=== PATIENT | male | born 1960 | race Caucasian/White ===

== ENCOUNTER 2018-04-17 11:35 | Day surgery (SDC) | payer MEDICAID ==
[2018-04-16 09:55] LABS: CALC OSMOLALITY 277 mosm/kg (275-300); CALCIUM 8.7 mg/dL (8.5-10.1); CARBON DIOXIDE 21.3 mmol/L (21.0-32.0); CHLORIDE - SERUM 106 mmol/L (98-107); POTASSIUM - SERUM 4.6 mmol/L (3.5-5.1); SODIUM 138 mmol/L (136-145); UREA NITROGEN 17 mg/dL (7-18); eGFR NON AFRICAN AMERICAN 82 mL/min (90-120)
[2018-04-16 09:57] LABS: GLUCOSE 102 mg/dL (74-106); HEMATOCRIT 41.4 % (42.0-54.0); HEMOGLOBIN 14.7 g/dL (13.5-17.5); MCH 30.8 pg (26.0-34.0); MCHC 35.5 g/dL (31.0-37.0); MCV 86.8 fL (80.0-100.0); MEAN PLATELET VOLUME 10.2 fL (7.4-10.4); PLATELET COUNT 95 10x3/uL (130-400); RBC 4.77 10x6/uL (4.20-6.10); RDW 13.3 % (11.5-14.5); WBC 7.3 10x3/uL (4.8-10.8)
[2018-04-16 11:13] LABS: PLATELET ESTIMATE DECREASED
[~2018-04-17] VITALS: Ht 180.3 cm; Wt 127.0 kg
--- NOTE | ~2018-04-17 | OP ---
PATIENT NAME: PRESLEY ARIAS MEDICAL RECORD: [id number] :60 LOCATION:[facility] ADMISSION DATE: SURGEON: MARII LAMBERT DO DATE OF OPERATION: 04/17/2018 PROCEDURE PERFORMED: Right endoscopic carpal tunnel release. PREOPERATIVE DIAGNOSIS: Right carpal tunnel syndrome. POSTOPERATIVE DIAGNOSIS: Right carpal tunnel syndrome. INDICATIONS: Mr. Arias is a 57-year-old male who presented to my office with a nerve conduction study, which revealed bilateral severe carpal tunnel syndrome, right worse than left. He informed me that his right hand had been numb and going to sleep on him as well as his left would wake him up at night and he could not drive or use it hardly without it going numb on him. After seeing the results of his nerve conduction study, I informed him that due to the severity of the carpal tunnel, we may not be able to get this better as far as the numbness, but the pain we can certainly help. After he was informed of the risks and benefits including damage to nerve, need for further surgery, infection, bleeding, he signed the consent. SURGEON: Marii Lambert DO DESCRIPTION OF PROCEDURE: The patient was taken to the operative suite, laid in supine position, given general anesthetic. The right upper extremity was prepped and draped in sterile fashion with tourniquet above the elbow below the drapes. Once he was prepped and draped, the patient was given 2 grams of Ancef preoperatively. The right upper extremity was then exsanguinated with an Esmarch and the tourniquet was inflated to 250 mmHg. A timeout had been performed at this point and incision was made just around the wrist crease with a 15-blade scalpel centered over the palmaris longus. Careful dissection was made down then, blunt dissection was made with Ragnell down the carpal tunnel itself and the carpal tunnel was entered with a measuring device and then the dilators and then the sheath was entered into the carpal tunnel. Once the transverse carpal ligament was viewed well with a sheath and the camera, it was cleaned with a rasp and the probe, and then the blade was entered in through the sheath and the transverse carpal ligament was incised and transected. Prior to entering the sheath and the dilators into the carpal tunnel, the proximal forearm fascia was released over the median nerve. Then, the transverse carpal tunnel was released with the blade through the sheath, and the sheath, the blade, and the camera were removed, and the most proximal portion of the transverse carpal ligament was left intact. This was then transected with a pair of scissors under direct loupe visualization. The larger end of the Ragnell was used in the carpal tunnel to view to ensure the transcarpal ligament was completely incised and then released. The injection of 10 mL of 0.25% Marcaine with epinephrine were then injected around the site and tourniquet was let down to 8 minutes. The incision was then closed with 4-0 Monocryl in inverted interrupted fashion. Steri-Strips, Adaptic, 4 x 4's, Kerlix, and Coban were lightly placed on the wound. The patient was awakened and taken to recovery in stable condition. BLOOD LOSS: Minimal. COMPLICATIONS: None. OPERATIVE REPORT [id number] PRESLEY ARIAS TRANSINT:[id number] Voice Confirmation ID: [id number] DOCUMENT ID: [id number] MARII LAMBERT DO at 0911 CC: [id number] DICTATION DATE: 04/17/18 1549 EQUINE VET: 04/17/18 1635 [facility] 04/17/18 [facility] [address] [place] [address]
[2018-04-17] MEDS ORDERED: GLIMEPIRIDE4 MG PO (13:17)
[2018-04-17] MEDS ORDERED: LITHIUM CARBON300 MG PO (13:18)
[2018-04-17] MEDS ORDERED: NEURONTIN 300300 MG PO (13:18)
[2018-04-17] MEDS ORDERED: COREG 3.1253.125 MG (13:19)
[2018-04-17] MEDS ORDERED: TRAZODONE HCL100 MG PO (13:20)
[2018-04-17] MEDS ORDERED: BUSPAR5 MG PO (13:20)
[2018-04-17] MEDS ORDERED: FLOMAX0.4 MG PO (13:22)
[2018-04-17] MEDS ORDERED: JANUMET XR 1001 EACH (13:22)
[2018-04-17 13:29] VITALS: BP 130/81; Ht 180.3 cm; Wt 127.0 kg
[2018-04-17] MEDS ORDERED: PERCOCET 7.5/321 TAB PO (15:05)
[2018-04-17] MEDS ORDERED: DURICEF500 MG PO (15:05)
== END 2018-04-17 17:30 | disposition home or self-care (01) ==
LOC: D.OPS 11:35 → D.PAN 13:30 → D.OPS 14:00
PROVIDERS: Anesthesiology
DX: G56.01 Carpal tunnel syndrome, right upper limb (principal); Z01.812 Encounter for preprocedural laboratory examination

== ENCOUNTER 2018-05-08 10:40 | Day surgery (SDC) | payer MEDICAID ==
[~2018-05-08] VITALS: Ht 180.3 cm; Wt 127.0 kg
--- NOTE | ~2018-05-08 | OP ---
PATIENT NAME: PRESLEY ARIAS MEDICAL RECORD: [id number] :60 LOCATION:[facility] ADMISSION DATE: SURGEON: MARII LAMBERT DO DATE OF OPERATION: 05/08/2018 PROCEDURE PERFORMED: Left endoscopic carpal tunnel release. PREOPERATIVE DIAGNOSIS: Left carpal tunnel syndrome. POSTOPERATIVE DIAGNOSIS: Left carpal tunnel syndrome. INDICATIONS: Mr. Arias is a 57-year-old male who has had his right carpal tunnel done a few weeks ago and one on his left done as well. He had a nerve conduction study, which revealed severe carpal tunnel in both carpal tunnel syndrome. He was aware of the risks and benefits of procedure including damage to nerve and vessels, need for further surgery, infection and bleeding and he signed the consent. SURGEON: Marii Lambert DO DESCRIPTION OF PROCEDURE: The patient was taken to the operating suite and laid in supine position. Left upper extremity was prepped and draped in sterile fashion. The patient was given 2 grams Ancef preoperatively. A timeout was performed and everyone was in agreement with the correct side, site, patient, and procedure. An Esmarch was then used. After a timeout was performed to exsanguinate the left upper extremity, tourniquet was inflated to 250 mmHg and was up for 10 minutes. Incision was then began just proximal to the wrist crease about a centimeter in length horizontally through the skin with 15 blade and then Ragnells were used to dissect down to the carpal tunnel itself. The proximal forearm fascia was then divided with the scissors and pickup and then the carpal tunnel was entered with the measuring device and the sounds, and then sheath was entered in the probe and rasp was then used to clean off the transverse carpal ligament, ensuring there was just transverse carpal ligament and nothing else. The blade was then brought in and raised up and under direct visualization, the camera was divided and the fat herniated down into the carpal tunnel. The blade and camera and sheath were then removed and the more proximal part of the transverse carpal ligament was divided with pickup and scissors and inspected and assured to be completely divided under direct loupe visualization. The tourniquet was then let down at 10 minutes, and 10 mL of 0.25% Marcaine with epinephrine were injected around the site and this site was closed with 4-0 Monocryl in inverted interrupted fashion. Steri-Strips, Adaptic, 4 x 4, Kerlix, and Coban was lightly wrapped on the hand. The patient was awakened and taken to recovery in stable condition. BLOOD LOSS: Minimal. COMPLICATIONS: None. TRANSINT:[id number] Voice Confirmation ID: [id number] DOCUMENT ID: [id number] OPERATIVE REPORT [id number] PRESLEY ARIAS,MARII Ware DO at 0745 CC: [id number] DICTATION DATE: 05/08/18 1422 [facility] P[facility]: 05/08/18 1518 [facility] 05/08/[address] [facility] [address] [place] [address]
[2018-05-08 10:15] VITALS: BP 125/79; Ht 180.3 cm; Wt 127.0 kg
[~2018-05-08 10:40] MED LIST: BUSPAR5 MG PO; COREG 3.1253.125 MG; DURICEF500 MG PO; FLOMAX0.4 MG PO; GLIMEPIRIDE4 MG PO; JANUMET XR 1001 EACH; LITHIUM CARBON300 MG PO; NEURONTIN 300300 MG PO; PERCOCET 7.5/321 TAB PO; TRAZODONE HCL100 MG PO
[2018-05-08] MEDS ORDERED: DURICEF500 MG PO (14:17)
[2018-05-08] MEDS ORDERED: OXYCODONE-APAP1 T10 PO (14:17)
== END 2018-05-08 16:05 | disposition home or self-care (01) ==
LOC: D.OPS 10:40 → D.PAN 12:30 → D.OPS 14:30 → D.PAN 14:30 → D.OPS 16:05 → D.PAN 16:45 → D.OPS 16:45 → D.PAN 16:50
DX: G56.02 Carpal tunnel syndrome, left upper limb (principal); Z01.812 Encounter for preprocedural laboratory examination

== ENCOUNTER 2018-08-25 14:58 | Emergency (ER) | payer MEDICAID ==
[~2018-08-25] VITALS: Ht 180.3 cm; Wt 120.5 kg
[~2018-08-25 14:58] MED LIST changes: +OXYCODONE-APAP1 T10 PO
[2018-08-25 15:06] VITALS: Ht 180.3 cm; Wt 120.5 kg
[2018-08-25 15:34] LABS: APPEARANCE CLEAR (CLEAR); BILIRUBIN NEGATIVE (NEGATIVE); COLOR STRAW (YELLOW); GLUCOSE 100 mg/dL (NEGATIVE); KETONE NEGATIVE (NEGATIVE); NITRITE NEGATIVE (NEGATIVE); PROTEIN TRACE mg/dL (NEGATIVE); SPECIFIC GRAVITY 1.005 (1.005-1.020); UROBILINOGEN NORMAL (NORMAL)
[2018-08-25 15:40] LABS: UDS - AMPHET NEGATIVE QUAL (NEGATIVE); UDS - BARB NEGATIVE QUAL (NEGATIVE); UDS - BENZO NEGATIVE QUAL (NEGATIVE); UDS - COCAINE NEGATIVE QUAL (NEGATIVE); UDS - OPIATE NEGATIVE QUAL (NEGATIVE); UDS - PCP NEGATIVE QUAL (NEGATIVE); UDS - THC NEGATIVE QUAL (NEGATIVE)
[2018-08-25 15:55] LABS: BASOPHILS 0.2 % (0-2); EOSINOPHILS 1.5 % (0-7); HEMOGLOBIN 15.5 g/dL (13.5-17.5); IMMATURE GRANULOCYTES 0.5 % (0-5); LYMPHOCYTES 28.4 % (15-50); MCH 30.9 pg (26.0-34.0); MCHC 36.9 g/dL (31.0-37.0); MCV 83.7 fL (80.0-100.0); MEAN PLATELET VOLUME 10.1 fL (7.4-10.4); NEUTROPHILS 59.4 % (40-80); PLATELET COUNT 92 10x3/uL (130-400); RBC 5.02 10x6/uL (4.20-6.10); RDW 12.9 % (11.5-14.5); WBC 8.1 10x3/uL (4.8-10.8)
[2018-08-25 16:18] LABS: ALBUMIN 3.8 g/dL (3.4-5.0); ALKALINE PHOSPHATASE 107 U/L (46-116); ALT (SGPT) 96 U/L (10-68); BILIRUBIN - TOTAL 0.57 mg/dL (0.2-1.3); CALC OSMOLALITY 274 mosm/kg (275-300); CALCIUM 8.2 mg/dL (8.5-10.1); CARBON DIOXIDE 16.8 mmol/L (21.0-32.0); CHLORIDE - SERUM 101 mmol/L (98-107); CREATININE - SERUM 0.7 mg/dL (0.6-1.3); GLUCOSE 202 mg/dL (74-106); POTASSIUM - SERUM 4.1 mmol/L (3.5-5.1); PROTEIN - SERUM 7.6 g/dL (6.4-8.2); SODIUM 134 mmol/L (136-145); UREA NITROGEN 14 mg/dL (7-18); eGFR NON AFRICAN AMERICAN > 90 mL/min (90-120)
[2018-08-25 16:26] LABS: THYROID STIMULATING HORMONE 1.88 uIU/mL (0.36-3.74)
[2018-08-25 23:54] VITALS: BP 122/76
== END 2018-08-26 01:13 ==
LOC: D.ER 14:58
PROVIDERS: Family Medicine
DX: R45.851 Suicidal ideations (principal); F10.129 Alcohol abuse with intoxication, unspecified; F10.10 Alcohol abuse, uncomplicated; E11.9 Type 2 diabetes mellitus without complications; I10 Essential (primary) hypertension; F17.200 Nicotine dependence, unspecified, uncomplicated

== ENCOUNTER 2018-12-01 12:32 | Emergency (ER) | payer MEDICAID ==
[~2018-12-01] VITALS: Ht 180.3 cm; Wt 131.8 kg
[2018-12-01 12:34] VITALS: Ht 180.3 cm; Wt 131.8 kg
[2018-12-01] MEDS ORDERED: LITHIUM CARBON300 MG PO ×2 (12:35→12:36)
[2018-12-01] MEDS ORDERED: NEURONTIN 300300 MG PO (12:36)
[2018-12-01] MEDS ORDERED: GLIMEPIRIDE4 MG PO (12:37)
[2018-12-01] MEDS ORDERED: CELEXA20 MG PO (12:37)
[2018-12-01] MEDS ORDERED: GLUCOPHAGE1000 MG PO (12:37)
[2018-12-01] MEDS ORDERED: LIPITOR40 MG PO (12:37)
[2018-12-01] MEDS ORDERED: BUSPAR5 MG PO (12:38)
[2018-12-01] MEDS ORDERED: COREG 3.1253.125 MG PO (12:38)
[2018-12-01] MEDS ORDERED: TRAZODONE HCL150 MG PO (12:38)
--- NOTE | 2018-12-01 13:15 | NUR ---
According to the Suicide Risk Assessment the number range the patient scored is high and it is our recommendation that the patient be placed on a 1:1 suicide watch. Did let the house superviser and his nurse know the results and a sitter is on her way now.
--- NOTE | 2018-12-01 13:16 | NUR ---
Per Dr. Arvizu recommendations the patient requires a 1:1 suicide watch d/t the suicide score. Did discuss the safety plan and provide suicide precautions with numbers and resources.
[2018-12-01 13:28] LABS: BASOPHILS 0.6 % (0-2); EOSINOPHILS 1.9 % (0-7); HEMATOCRIT 39.7 % (42.0-54.0); IMMATURE GRANULOCYTES 0.2 % (0-5); MCH 31.4 pg (26.0-34.0); MCHC 35.3 g/dL (31.0-37.0); MEAN PLATELET VOLUME 10.4 fL (7.4-10.4); MONOCYTES 5.3 % (2-11); RBC 4.46 10x6/uL (4.20-6.10); RDW 13.7 % (11.5-14.5); WBC 8.8 10x3/uL (4.8-10.8)
[2018-12-01 13:30] LABS: PLATELET COUNT 113 10x3/uL (130-400)
[2018-12-01 13:41] LABS: LITHIUM 0.93 mmol/L (0.60-1.20); SALICYLATES 1.4 mg/dL (2.8-20.0)
[2018-12-01 13:46] LABS: ALBUMIN 3.6 g/dL (3.4-5.0); ANION GAP 17.4 mmol/L (8-16); BILIRUBIN - TOTAL 0.54 mg/dL (0.2-1.3); CALCIUM 8.8 mg/dL (8.5-10.1); CARBON DIOXIDE 19.4 mmol/L (21.0-32.0); CREATININE - SERUM 1.1 mg/dL (0.6-1.3); MAGNESIUM - SERUM 1.6 mg/dL (1.8-2.4); POTASSIUM - SERUM 3.8 mmol/L (3.5-5.1); PROTEIN - SERUM 6.8 g/dL (6.4-8.2)
[2018-12-01 15:40] LABS: APPEARANCE CLEAR (CLEAR); BILIRUBIN NEGATIVE (NEGATIVE); COLOR YELLOW (YELLOW); GLUCOSE NEGATIVE (NEGATIVE); KETONE NEGATIVE (NEGATIVE); NITRITE NEGATIVE (NEGATIVE); PROTEIN NEGATIVE (NEGATIVE); UROBILINOGEN NORMAL (NORMAL)
[2018-12-01 15:46] LABS: UDS - AMPHET NEGATIVE QUAL (NEGATIVE); UDS - BARB NEGATIVE QUAL (NEGATIVE); UDS - BENZO NEGATIVE QUAL (NEGATIVE); UDS - COCAINE NEGATIVE QUAL (NEGATIVE); UDS - OPIATE NEGATIVE QUAL (NEGATIVE); UDS - PCP NEGATIVE QUAL (NEGATIVE); UDS - THC NEGATIVE QUAL (NEGATIVE)
[2018-12-02 13:22] VITALS: BP 136/84
== END 2018-12-02 13:25 | disposition home or self-care (01) ==
LOC: D.ER 12:32
PROVIDERS: Family Medicine
DX: F10.129 Alcohol abuse with intoxication, unspecified (principal); R45.851 Suicidal ideations

== ENCOUNTER 2018-12-03 13:40 | Emergency (ER) | payer MEDICAID ==
[~2018-12-03] VITALS: Ht 180.3 cm; Wt 131.8 kg
[~2018-12-03 13:40] MED LIST changes: +CELEXA20 MG PO; +COREG 3.1253.125 MG PO; +GLUCOPHAGE1000 MG PO; +LIPITOR40 MG PO; +TRAZODONE HCL150 MG PO
[2018-12-03 13:48] VITALS: Ht 180.3 cm; Wt 131.8 kg
[2018-12-03 15:09] LABS: BASOPHILS 0.6 % (0-2); EOSINOPHILS 2.7 % (0-7); HEMOGLOBIN 13.3 g/dL (13.5-17.5); IMMATURE GRANULOCYTES 0.1 % (0-5); LYMPHOCYTES 25.7 % (15-50); MCH 31.1 pg (26.0-34.0); MCHC 35.9 g/dL (31.0-37.0); MCV 86.7 fL (80.0-100.0); MEAN PLATELET VOLUME 9.8 fL (7.4-10.4); MONOCYTES 6.2 % (2-11); NEUTROPHILS 64.7 % (40-80); PLATELET COUNT 92 10x3/uL (130-400); RBC 4.27 10x6/uL (4.20-6.10); RDW 13.3 % (11.5-14.5); WBC 7.1 10x3/uL (4.8-10.8)
--- NOTE | 2018-12-03 15:16 | NUR ---
ATTEMPTED TO DO A SUICIAL RISK ASSESSMENT, PATIENT UNABLE TO ANSWER APPROPRIATELY DUE TO ALCOHOL INTOXICATION. STATES HE HAS DRANK TWELVE BEERS BEFORE ADMISSION. STAFF NEEDS TO CALL HALF-WAY, WHEN PATIENT IS MORE SOBER AND ABLE TO ANSWER QUESTIONS.
[2018-12-03 15:20] LABS: UDS - AMPHET NEGATIVE QUAL (NEGATIVE); UDS - BARB NEGATIVE QUAL (NEGATIVE); UDS - BENZO NEGATIVE QUAL (NEGATIVE); UDS - COCAINE NEGATIVE QUAL (NEGATIVE); UDS - OPIATE NEGATIVE QUAL (NEGATIVE); UDS - PCP NEGATIVE QUAL (NEGATIVE); UDS - THC NEGATIVE QUAL (NEGATIVE)
[2018-12-03 15:22] LABS: APPEARANCE CLEAR (CLEAR); BILIRUBIN NEGATIVE (NEGATIVE); COLOR YELLOW (YELLOW); GLUCOSE 250 mg/dL (NEGATIVE); KETONE NEGATIVE (NEGATIVE); NITRITE NEGATIVE (NEGATIVE); PROTEIN NEGATIVE (NEGATIVE); UROBILINOGEN NORMAL (NORMAL)
[2018-12-03 15:24] LABS: ALBUMIN 3.3 g/dL (3.4-5.0); ALKALINE PHOSPHATASE 72 U/L (46-116); ALT (SGPT) 94 U/L (10-68); BILIRUBIN - TOTAL 0.44 mg/dL (0.2-1.3); CALC OSMOLALITY 274 mosm/kg (275-300); CALCIUM 8.7 mg/dL (8.5-10.1); CHLORIDE - SERUM 103 mmol/L (98-107); CREATININE - SERUM 0.7 mg/dL (0.6-1.3); MAGNESIUM - SERUM 1.4 mg/dL (1.8-2.4); PROTEIN - SERUM 6.3 g/dL (6.4-8.2); SODIUM 134 mmol/L (136-145); UREA NITROGEN 13 mg/dL (7-18); eGFR NON AFRICAN AMERICAN > 90 mL/min (90-120)
[2018-12-03 15:36] LABS: GLUCOSE 225 mg/dL (74-106)
[2018-12-03 15:53] LABS: PLATELET ESTIMATE DECREASED
--- NOTE | 2018-12-03 20:16 | NUR ---
ATTEMPTED SUICIDE ASSESSMENT AGAIN AND PT DENIED ANY SI. HE STATED "I SAY AND DO STUPID STUFF WHEN I AM DRUNK". REVIEWED ALCOHOL ABUSE AND COPING SKILLS TO DEAL WITH THINGS RATHER THAN TO DRINK. PT AGREED TO TRY TO STOP DRINKING. NOTIFIED DR. GARSIA AND REVIEWED PT'S BEHAVIOR AND ASSESSMENT FINDING. DR. GARSIA STATED HE DOES NOT BELIEVE THE PT IS AT RISK AND PT CAN BE DISCHARGED WITH RESOURCES FOR ALCOHOL ABUSE AND PSYCHIATRIC ASSISTANCE. PT AGREED TO DISCHARGE INFORMATION AND DOES WANT TO RETURN TO HOME. CHARGE NURSE AND ATTENDING NOTIFIED OF FINDINGS.
[2018-12-03 21:13] VITALS: BP 135/78
== END 2018-12-03 21:13 | disposition home or self-care (01) ==
LOC: D.ER 13:40
PROVIDERS: Family Medicine
DX: R45.851 Suicidal ideations (principal); F10.129 Alcohol abuse with intoxication, unspecified

== ENCOUNTER 2018-12-19 15:48 | Emergency (ER) | payer MEDICAID ==
[~2018-12-19] VITALS: Ht 180.3 cm; Wt 134.1 kg
[2018-12-19 16:00] VITALS: Ht 180.3 cm; Wt 134.1 kg
[2018-12-19 16:19] LABS: BASOPHILS 0.5 % (0-2); EOSINOPHILS 2.3 % (0-7); HEMATOCRIT 38.9 % (42.0-54.0); HEMOGLOBIN 13.7 g/dL (13.5-17.5); IMMATURE GRANULOCYTES 0.3 % (0-5); LYMPHOCYTES 18.4 % (15-50); MCH 31.2 pg (26.0-34.0); MCHC 35.2 g/dL (31.0-37.0); MCV 88.6 fL (80.0-100.0); MEAN PLATELET VOLUME 9.9 fL (7.4-10.4); MONOCYTES 6.8 % (2-11); NEUTROPHILS 71.7 % (40-80); PLATELET COUNT 80 10x3/uL (130-400); RBC 4.39 10x6/uL (4.20-6.10); RDW 13.1 % (11.5-14.5); WBC 6.6 10x3/uL (4.8-10.8)
[2018-12-19 16:37] LABS: UDS - AMPHET NEGATIVE QUAL (NEGATIVE); UDS - BARB NEGATIVE QUAL (NEGATIVE); UDS - BENZO NEGATIVE QUAL (NEGATIVE); UDS - COCAINE NEGATIVE QUAL (NEGATIVE); UDS - OPIATE NEGATIVE QUAL (NEGATIVE); UDS - PCP NEGATIVE QUAL (NEGATIVE); UDS - THC NEGATIVE QUAL (NEGATIVE)
[2018-12-19 16:43] LABS: APPEARANCE CLEAR (CLEAR); COLOR STRAW (YELLOW)
[2018-12-19 16:44] LABS: BILIRUBIN NEGATIVE (NEGATIVE); GLUCOSE 250 mg/dL (NEGATIVE); KETONE NEGATIVE (NEGATIVE); NITRITE NEGATIVE (NEGATIVE); PROTEIN NEGATIVE (NEGATIVE); SPECIFIC GRAVITY 1.005 (1.005-1.020); UROBILINOGEN NORMAL (NORMAL)
[2018-12-19 16:47] LABS: LITHIUM 0.93 mmol/L (0.60-1.20); SALICYLATES 1.8 mg/dL (2.8-20.0)
[2018-12-19 16:47] LABS: BACTERIA NONE SEEN /hpf (NONE SEEN); EPITHELIAL CELLS NSEEN /hpf (0-5); RED CELLS - URINE 0-5 /hpf (0-5); WHITE CELLS - URINE NSEEN /hpf (0-5)
--- NOTE | 2018-12-19 16:48 | NUR ---
DR. GARSIA NOTIFIED AND 1:1 SITTER OBSERVATION ORDERED. SITTER AT BEDSIDE. NOTIFIED CHARGE NURSE AND ATTENDING IN REGARDS TO ASSESSMENT FINDINGS. RESOURCES GIVEN TO PT AND SAFETY PLAN INITIATED.
[2018-12-19 16:51] LABS: ALBUMIN 3.5 g/dL (3.4-5.0); ALKALINE PHOSPHATASE 160 U/L (46-116); ALT (SGPT) 91 U/L (10-68); BILIRUBIN - TOTAL 0.41 mg/dL (0.2-1.3); CALC OSMOLALITY 282 mosm/kg (275-300); CALCIUM 8.9 mg/dL (8.5-10.1); CARBON DIOXIDE 18.4 mmol/L (21.0-32.0); CHLORIDE - SERUM 102 mmol/L (98-107); MAGNESIUM - SERUM 1.4 mg/dL (1.8-2.4); POTASSIUM - SERUM 4.4 mmol/L (3.5-5.1); SODIUM 133 mmol/L (136-145); UREA NITROGEN 21 mg/dL (7-18); eGFR NON AFRICAN AMERICAN 81 mL/min (90-120)
[2018-12-19 16:52] LABS: GLUCOSE 343 mg/dL (74-106)
[2018-12-19 19:28] LABS: KETONE - SERUM NEGATIVE (NEGATIVE)
[2018-12-20 01:45] VITALS: BP 140/79
== END 2018-12-20 01:45 ==
LOC: D.ER 15:48
PROVIDERS: Family Medicine
DX: R45.851 Suicidal ideations (principal); F10.129 Alcohol abuse with intoxication, unspecified; F10.10 Alcohol abuse, uncomplicated; S61.512A Laceration without foreign body of left wrist, initial encounter; S61.511A Laceration without foreign body of right wrist, initial encounter; X78.1XXA Intentional self-harm by knife, initial encounter; Y93.89 Activity, other specified; Y92.89 Other specified places as the place of occurrence of the external cause

== ENCOUNTER 2019-02-27 09:36 | Inpatient (IN) | payer MEDICAID ==
[~2019-02-27] VITALS: Ht 180.3 cm; Wt 134.1 kg
[2019-02-27] VITALS (9 sets, daily range): BP systolic 116–148; BP diastolic 53–89; Ht 180.3 cm; Wt 134.1 kg
[2019-02-27] MEDS ORDERED: SEROQUEL25 MG PO (09:48)
[2019-02-27] MEDS ORDERED: COREG 3.1253.125 MG PO (09:50)
[2019-02-27] MEDS ORDERED: EFFEXOR100 MG PO (09:50)
[2019-02-27] MEDS ORDERED: TRAZODONE HCL150 MG PO (09:50)
[2019-02-27 10:23] LABS: KETONE - SERUM NEGATIVE (NEGATIVE)
[2019-02-27 10:28] LABS: BASOPHILS 0.4 % (0-2); EOSINOPHILS 2.1 % (0-7); HEMATOCRIT 42.9 % (42.0-54.0); HEMOGLOBIN 15.9 g/dL (13.5-17.5); IMMATURE GRANULOCYTES 0.3 % (0-5); LYMPHOCYTES 19.6 % (15-50); MCH 32.1 pg (26.0-34.0); MCHC 37.1 g/dL (31.0-37.0); MCV 86.7 fL (80.0-100.0); MEAN PLATELET VOLUME 10.6 fL (7.4-10.4); MONOCYTES 12.3 % (2-11); NEUTROPHILS 65.3 % (40-80); PLATELET COUNT 112 10x3/uL (130-400); RBC 4.95 10x6/uL (4.20-6.10); RDW 12.7 % (11.5-14.5); WBC 7.3 10x3/uL (4.8-10.8)
[2019-02-27 10:31] LABS: ALBUMIN 4.1 g/dL (3.4-5.0); ALKALINE PHOSPHATASE 145 U/L (46-116); ALT (SGPT) 111 U/L (10-68); BILIRUBIN - TOTAL 1.13 mg/dL (0.2-1.3); CALCIUM 9.3 mg/dL (8.5-10.1); CARBON DIOXIDE 20.2 mmol/L (21.0-32.0); CHLORIDE - SERUM 95 mmol/L (98-107); CREATININE - SERUM 1.3 mg/dL (0.6-1.3); MAGNESIUM - SERUM 1.9 mg/dL (1.8-2.4); POTASSIUM - SERUM 4.8 mmol/L (3.5-5.1); PROTEIN - SERUM 7.9 g/dL (6.4-8.2); SODIUM 128 mmol/L (136-145); UREA NITROGEN 23 mg/dL (7-18); eGFR NON AFRICAN AMERICAN 60 mL/min (90-120)
[2019-02-27 10:34] LABS: CALC OSMOLALITY 289 mosm/kg (275-300)
[2019-02-27 10:35] LABS: APPEARANCE CLEAR (CLEAR); COLOR YELLOW (YELLOW); NITRITE NEGATIVE (NEGATIVE); PROTEIN NEGATIVE (NEGATIVE)
[2019-02-27 10:36] LABS: BILIRUBIN NEGATIVE (NEGATIVE); GLUCOSE 1000 mg/dL (NEGATIVE); KETONE NEGATIVE (NEGATIVE); UROBILINOGEN NORMAL (NORMAL)
[2019-02-27 10:36] LABS: GLUCOSE 629 mg/dL (74-106)
[2019-02-27 10:37] LABS: BACTERIA FEW /hpf (NONE SEEN); EPITHELIAL CELLS RARE /hpf (0-5); RED CELLS - URINE OCC /hpf (0-5)
--- NOTE | 2019-02-27 14:42 | NUR ---
FSBS 314MG/DL
--- NOTE | 2019-02-27 15:19 | NUR ---
ADA DIET SERVED. APPETITE GOOD
--- NOTE | 2019-02-27 15:42 | NUR ---
REPORT CALLED TO MIKA NOBLES BY SBAR FORMAT
--- NOTE | 2019-02-27 16:02 | NUR ---
TRANSP[ORTED TO ROOM #1208, CONDITION STABLE
[2019-02-27] MEDS ORDERED: ELAVIL25 MG (16:08)
[2019-02-27] MEDS ORDERED: SEROQUEL50 MG (16:09)
--- NOTE | 2019-02-27 19:25 | NUR ---
REC'D TO CARE, HABILITATIVE INTERVENTIONIST PER FLOWSHEET. PT ALERT AND ORIENTED, VSS. IVF INFUSING TO L FA, NO REDNESS OR SWELLING AT SITE. PT REPORTS KAT. WILL REVIEW HOME MEDS/REQ AND NOTIFIY C/L IN REACH.
[2019-02-27] MEDS ORDERED: LIPITOR80 MG PO (19:47)
--- NOTE | 2019-02-27 20:30 | NUR ---
MED REQ COMPLETED WITH PATIENT AND HIS MED BOTTLES FROM HOME. NOTIFIED Jacey [place] CHAIRMAN AND HOME MEDS CONT PER ORDER.
--- NOTE | 2019-02-27 22:03 | NUR ---
FSBS 282, COVERED PER SS AND SNACK GIVEN
--- NOTE | 2019-02-28 00:24 | NUR ---
PT ON TELEMETRY - SR RATE 72
--- NOTE | 2019-02-28 02:00 | NUR ---
PT UP TO BR INDEPENDENTLY.
--- NOTE | 2019-02-28 03:15 | NUR ---
VSS. PT AWAKENS EASILY, DENIES PAIN OR NEEDS. C/L IN REACH.
[2019-02-28 03:30] VITALS: BP 123/59
[2019-02-28 07:22] LABS: BASOPHILS 0.4 % (0-2); EOSINOPHILS 2.3 % (0-7); HEMOGLOBIN 13.7 g/dL (13.5-17.5); IMMATURE GRANULOCYTES 0.4 % (0-5); LYMPHOCYTES 34.6 % (15-50); MCH 31.1 pg (26.0-34.0); MCHC 36.1 g/dL (31.0-37.0); MCV 86.4 fL (80.0-100.0); MEAN PLATELET VOLUME 10.6 fL (7.4-10.4); MONOCYTES 8.5 % (2-11); NEUTROPHILS 53.8 % (40-80); RDW 12.7 % (11.5-14.5)
[2019-02-28 07:27] LABS: PLATELET COUNT 77 10x3/uL (130-400); WBC 4.8 10x3/uL (4.8-10.8)
[2019-02-28 07:31] LABS: ALKALINE PHOSPHATASE 91 U/L (46-116); CALCIUM 8.3 mg/dL (8.5-10.1); CARBON DIOXIDE 23.2 mmol/L (21.0-32.0); CHLORIDE - SERUM 106 mmol/L (98-107); MAGNESIUM - SERUM 1.5 mg/dL (1.8-2.4); POTASSIUM - SERUM 4.2 mmol/L (3.5-5.1); SODIUM 137 mmol/L (136-145); UREA NITROGEN 20 mg/dL (7-18)
[2019-02-28 07:32] LABS: ALT (SGPT) 76 U/L (10-68); CALC OSMOLALITY 282 mosm/kg (275-300); CREATININE - SERUM 0.8 mg/dL (0.6-1.3); GLUCOSE 213 mg/dL (74-106); eGFR NON AFRICAN AMERICAN > 90 mL/min (90-120)
--- NOTE | 2019-02-28 07:32 | NUR ---
PT RESTING. FSBS 275, 10 UNITS HUMULIN GIVEN. PT STATES HE IS HUNGRY. WAS TOLD BREAKFAST WOULD BE SOON. DENIES NEEDS OTHERWISE. RR EVEN AND UNLABORED. WILL CONTINUE TO MONITOR.
[2019-02-28 08:01] VITALS: BP 127/79
[2019-02-28 08:28] LABS: PLATELET ESTIMATE DECREASED
[2019-02-28] MEDS ORDERED: JARDIANCE25 MG PO (11:26)
--- NOTE | 2019-02-28 13:15 | NUR ---
D/C INFORMATION REVIEWED WITH PT. VERBALIZES AGREEMENT. LEFT VIA WHEELCHAIR TO PERSONAL VEHICHLE. IV D/C WITH CATHETER TIP INTACT. HEART MONITOR REMOVED AND WILL BE TAKEN BACK TO TREE AND SHRUB TECHNICIAN.
--- NOTE | 2019-02-28 15:19 | MORECARE ---
CASE MANAGEMENT DISCHARGE SUMMARY PATIENT: PRESLEY DAILEY UNIT: [id number] ADM DATE: 02/27/19 AGE: 58 : 60 SEX: M ROOM/BED: D.1208 AUTHOR: YUNIEL,DOC PHYSICIAN: REFERRING PHYSICIAN: JUAN CARLOS ORTA DO DATE OF SERVICE: 02/28/19 Discharge Plan Patient Name: PRESLEY DAILEY Facility: [facility]:[place] : 1960 Planned Disposition: Home Anticipated Discharge Date: Discharge Date: 02/28/2019 Expected LOS: Initial Reviewer: [email or web address] Initial Review Date: 02/28/2019 Generated: 02/28/19 4:18 pm Comments DCP- Discharge Planning Updated by [email or web address]: Kayy Vasquez on 02/28/19 2:[address] Patient Name: PRESLEY DAILEY Admission Status: ER Accout number: [id number] Admission Date: 02-27-2019 : 1960 Admission Diagnosis: Attending: JUAN CARLOS ORTA Current LOS: 1 Anticipated DC Date: Planned Disposition: Home Primary Insurance: MEDICAID [place] Discharge Planning Comments: CM met with patient at bedside about discharge planning /needs. Patient states he lives alone. Patient states he plans to discharge to his home. States he will have family transport him home upon discharge. Denies need for home health or other community resource needs. States home environment is safe. Denies any discharge needs or concerns at this time. CM will continue to follow and assist as needed with discharge planning / needs. Dredge Pipeman: Kayy Vasquez DCPIA - Discharge Planning Initial Assessment Updated by [email or web address]: Kayy Vasquez on 02/28/19 3:11 pm * Is the patient Alert and Oriented? Yes * How many steps to enter\exit or inside your home? * PCP Esau Diggs * Pharmacy [facility] [place] * Preadmission Environment Home Alone * ADLs Independent * Equipment Glucometer * Other Equipment med alert * List name and contact numbers for known caregivers / representatives who currently or will assist patient after discharge: Valentina Teodoro - [facility]- [phone] * Verbal permission to speak to the caregivers and representatives has been obtained from the patient. N/A * Community resources currently utilized None * Additional services required to return to the preadmission environment? No * Can the patient safely return to the preadmission environment? Yes * Has this patient been hospitalized within the prior 30 days at any hospital? No Patient Name: PRESLEY DAILEY Page [id number] at 1519 All edits/amendments must be made on the electronic document DICTATION DATE: 02/28/191517 FOOD SERVICES COORDINATOR: VIKTOR 02/28/198 RPT#: [id number] DC DATE:02/28/19 STATUS: DIS IN [facility] [address] [place] [address] END OF REPORT
[2019-03-01 07:14] LABS: HEPATITIS C ANTIBODY >11.0 S/CO RAT (0.0-0.9)
--- NOTE | 2019-03-01 08:23 | MORECARE ---
CASE MANAGEMENT DISCHARGE SUMMARY PATIENT: PRESLEY DAILEY UNIT: [id number] ADM DATE: 02/27/19 AGE: 58 : 60 SEX: M ROOM/BED: D.1208 AUTHOR: YUNIEL,DOC PHYSICIAN: REFERRING PHYSICIAN: JUAN CARLOS ORTA DO DATE OF SERVICE: 03/01/19 Discharge Plan Patient Name: PRESLEY DAILEY Facility: [facility]:[place] : 1960 Planned Disposition: Home Anticipated Discharge Date: Discharge Date: 02/28/2019 Expected LOS: Initial Reviewer: [email or web address] Initial Review Date: 02/28/2019 Generated: 03/01/19 9:23 am Comments DCP- Discharge Planning Updated by [email or web address]: Kayy Vasquez on 02/28/19 2:[address] Patient Name: PRESLEY DAILEY Admission Status: ER Accout number: [id number] Admission Date: 02-27-2019 : 1960 Admission Diagnosis: Attending: JUAN CARLOS ORTA Current LOS: 1 Anticipated DC Date: Planned Disposition: Home Primary Insurance: MEDICAID [place] Discharge Planning Comments: CM met with patient at bedside about discharge planning /needs. Patient states he lives alone. Patient states he plans to discharge to his home. States he will have family transport him home upon discharge. Denies need for home health or other community resource needs. States home environment is safe. Denies any discharge needs or concerns at this time. CM will continue to follow and assist as needed with discharge planning / needs. Lead Military Analyst: Kayy Vasquez DCPIA - Discharge Planning Initial Assessment Updated by [email or web address]: Kayy Vasquez on 02/28/19 3:11 pm * Is the patient Alert and Oriented? Yes * How many steps to enter\exit or inside your home? * PCP Esau Diggs * Pharmacy [facility] [place] * Preadmission Environment Home Alone * ADLs Independent * Equipment Glucometer * Other Equipment med alert * List name and contact numbers for known caregivers / representatives who currently or will assist patient after discharge: Valentina Teodoro - [facility]- [phone] * Verbal permission to speak to the caregivers and representatives has been obtained from the patient. N/A * Community resources currently utilized None * Additional services required to return to the preadmission environment? No * Can the patient safely return to the preadmission environment? Yes * Has this patient been hospitalized within the prior 30 days at any hospital? No Last DP export: 02/28/19 2:18 p Patient Name: PRESLEY DAILEY Page [id number] at 0823 All edits/amendments must be made on the electronic document DICTATION DATE: 03/01/19821 WHITEPRINTING MACHINE OPERATOR: VIKTOR 03/01/19821 RPT#: [id number] DC DATE:02/28/19 STATUS: DIS IN [facility] [address] [place] [address] END OF REPORT
== END 2019-02-28 13:15 | disposition home or self-care (01) | DRG 638 ==
LOC: D.ER 09:36 → D.M3 15:23
PROVIDERS: Family Medicine; ADMIT Family Medicine; ATTEND Family Medicine
DX: E11.65 Type 2 diabetes mellitus with hyperglycemia (principal); F17.213 Nicotine dependence, cigarettes, with withdrawal; E87.1 Hypo-osmolality and hyponatremia; D69.6 Thrombocytopenia, unspecified; I10 Essential (primary) hypertension; F31.9 Bipolar disorder, unspecified; F10.21 Alcohol dependence, in remission

== ENCOUNTER 2019-03-16 12:23 | Emergency (ER) | payer MEDICAID ==
[~2019-03-16] VITALS: Ht 180.3 cm; Wt 138.6 kg
[~2019-03-16 12:23] MED LIST changes: +EFFEXOR100 MG PO; +ELAVIL25 MG; +JARDIANCE25 MG PO; +LIPITOR80 MG PO; +SEROQUEL25 MG PO; +SEROQUEL50 MG
[2019-03-16 12:38] VITALS: Ht 180.3 cm; Wt 138.6 kg
[2019-03-16 13:08] LABS: HEMATOCRIT 41.1 % (42.0-54.0); HEMOGLOBIN 14.9 g/dL (13.5-17.5); MCH 31.4 pg (26.0-34.0); MCHC 36.3 g/dL (31.0-37.0); MCV 86.5 fL (80.0-100.0); MEAN PLATELET VOLUME 10.3 fL (7.4-10.4); PLATELET COUNT 78 10x3/uL (130-400); RBC 4.75 10x6/uL (4.20-6.10); RDW 12.5 % (11.5-14.5); WBC 2.7 10x3/uL (4.8-10.8)
[2019-03-16 13:25] LABS: ALBUMIN 3.3 g/dL (3.4-5.0); ALKALINE PHOSPHATASE 100 U/L (46-116); ALT (SGPT) 132 U/L (10-68); BILIRUBIN - TOTAL 0.75 mg/dL (0.2-1.3); CALC OSMOLALITY 273 mosm/kg (275-300); CALCIUM 8.3 mg/dL (8.5-10.1); CARBON DIOXIDE 15.5 mmol/L (21.0-32.0); CHLORIDE - SERUM 99 mmol/L (98-107); POTASSIUM - SERUM 3.9 mmol/L (3.5-5.1); PROTEIN - SERUM 6.7 g/dL (6.4-8.2); SODIUM 133 mmol/L (136-145); UREA NITROGEN 9 mg/dL (7-18); eGFR NON AFRICAN AMERICAN 81 mL/min (90-120)
[2019-03-16 13:26] LABS: GLUCOSE 269 mg/dL (74-106); MAGNESIUM - SERUM 0.9 mg/dL (1.8-2.4)
[2019-03-16 13:31] LABS: ANISOCYTOSIS 2+; BASOPHILS 3 % (0-2); LYMPHOCYTES 14 % (15-50); MICROCYTOSIS 1+; MONOCYTES 2 % (2-11); NEUTROPHILS 79 % (40-80); PLATELET ESTIMATE DECREASED; TEAR DROP CELLS 1+
[2019-03-16 13:57] LABS: CREATINE KINASE 79 UL (21-232); TROPONIN-I < 0.017 ng/mL (0.000-0.060)
--- NOTE | 2019-03-16 14:25 | NUR ---
According to the Suicide assessment the patient is a low risk for Suicide and he does not require a 1:1 observation.
[2019-03-16 15:23] LABS: APPEARANCE CLEAR (CLEAR); BILIRUBIN NEGATIVE (NEGATIVE); COLOR YELLOW (YELLOW); GLUCOSE NEGATIVE (NEGATIVE); KETONE NEGATIVE (NEGATIVE); NITRITE NEGATIVE (NEGATIVE); PROTEIN NEGATIVE (NEGATIVE); UROBILINOGEN NORMAL (NORMAL)
[2019-03-16 15:32] LABS: UDS - AMPHET NEGATIVE QUAL (NEGATIVE); UDS - BARB NEGATIVE QUAL (NEGATIVE); UDS - BENZO NEGATIVE QUAL (NEGATIVE); UDS - COCAINE POSITIVE QUAL (NEGATIVE); UDS - OPIATE NEGATIVE QUAL (NEGATIVE); UDS - PCP NEGATIVE QUAL (NEGATIVE); UDS - THC NEGATIVE QUAL (NEGATIVE)
[2019-03-16 18:23] VITALS: BP 136/72
== END 2019-03-16 18:25 | disposition home or self-care (01) ==
LOC: D.ER 12:23
PROVIDERS: Emergency Medicine
DX: R45.851 Suicidal ideations (principal); F32.9 Major depressive disorder, single episode, unspecified; F19.10 Other psychoactive substance abuse, uncomplicated; E11.65 Type 2 diabetes mellitus with hyperglycemia

== ENCOUNTER 2019-03-30 13:05 | Emergency (ER) | payer MEDICAID ==
[~2019-03-30] VITALS: Ht 180.3 cm; Wt 136.4 kg
[2019-03-30 13:14] VITALS: Ht 180.3 cm; Wt 136.4 kg
[2019-03-30 13:30] LABS: HCG URINE NEGATIVE
[2019-03-30 13:37] LABS: UDS - AMPHET NEGATIVE QUAL (NEGATIVE); UDS - BARB NEGATIVE QUAL (NEGATIVE); UDS - BENZO NEGATIVE QUAL (NEGATIVE); UDS - COCAINE NEGATIVE QUAL (NEGATIVE); UDS - OPIATE NEGATIVE QUAL (NEGATIVE); UDS - PCP NEGATIVE QUAL (NEGATIVE); UDS - THC NEGATIVE QUAL (NEGATIVE)
[2019-03-30 13:43] LABS: BASOPHILS 0.4 % (0-2); EOSINOPHILS 1.1 % (0-7); HEMATOCRIT 37.7 % (42.0-54.0); HEMOGLOBIN 13.7 g/dL (13.5-17.5); IMMATURE GRANULOCYTES 0.4 % (0-5); LYMPHOCYTES 20.1 % (15-50); MCH 31.3 pg (26.0-34.0); MCHC 36.3 g/dL (31.0-37.0); MCV 86.1 fL (80.0-100.0); MEAN PLATELET VOLUME 9.6 fL (7.4-10.4); PLATELET COUNT 93 10x3/uL (130-400); RBC 4.38 10x6/uL (4.20-6.10); RDW 13.1 % (11.5-14.5); WBC 7.6 10x3/uL (4.8-10.8)
[2019-03-30 13:57] LABS: APPEARANCE CLEAR (CLEAR); BILIRUBIN NEGATIVE (NEGATIVE); COLOR YELLOW (YELLOW); EPITHELIAL CELLS RARE /hpf (0-5); GLUCOSE 1000 mg/dL (NEGATIVE); KETONE NEGATIVE (NEGATIVE); NITRITE NEGATIVE (NEGATIVE); PROTEIN NEGATIVE (NEGATIVE); RED CELLS - URINE RARE /hpf (0-5); SPECIFIC GRAVITY 1.005 (1.005-1.020); UROBILINOGEN NORMAL (NORMAL); WHITE CELLS - URINE RARE /hpf (NEGATIVE)
[2019-03-30 13:58] LABS: ALBUMIN 3.5 g/dL (3.4-5.0); ALKALINE PHOSPHATASE 145 U/L (46-116); ALT (SGPT) 126 U/L (10-68); BILIRUBIN - TOTAL 0.45 mg/dL (0.2-1.3); CALCIUM 8.5 mg/dL (8.5-10.1); CARBON DIOXIDE 20.1 mmol/L (21.0-32.0); CHLORIDE - SERUM 101 mmol/L (98-107); MAGNESIUM - SERUM 1.6 mg/dL (1.8-2.4); POTASSIUM - SERUM 4.2 mmol/L (3.5-5.1); PROTEIN - SERUM 6.9 g/dL (6.4-8.2); SODIUM 136 mmol/L (136-145); UREA NITROGEN 10 mg/dL (7-18); eGFR NON AFRICAN AMERICAN 81 mL/min (90-120)
[2019-03-30 13:59] LABS: CALC OSMOLALITY 286 mosm/kg (275-300); GLUCOSE 390 mg/dL (74-106); PHENYTOIN (DILANTIN) 0.4 ug/mL (10.0-20.0)
--- NOTE | 2019-03-30 14:26 | NUR ---
According to the suicide assessment score the patient scores high and requires a 1:1 observation.
[2019-03-30 15:03] LABS: PLATELET ESTIMATE DECREASED
[2019-03-31 17:00] VITALS: BP 136/72
== END 2019-03-31 17:02 ==
LOC: D.ER 13:05
PROVIDERS: Family Medicine
DX: R45.851 Suicidal ideations (principal); F41.9 Anxiety disorder, unspecified

== ENCOUNTER 2019-04-21 21:47 | Emergency (ER) | payer MEDICAID ==
[~2019-04-21] VITALS: Ht 180.3 cm; Wt 147.7 kg
[2019-04-21 21:48] VITALS: Ht 180.3 cm; Wt 147.7 kg
[2019-04-21] MEDS ORDERED: NEURONTIN 300300 MG PO (21:57)
[2019-04-21] MEDS ORDERED: COREG 3.1253.125 MG PO (21:57)
[2019-04-21] MEDS ORDERED: MUPIROCIN15 GM (21:58)
[2019-04-21] MEDS ORDERED: LACTINEX (21:58)
[2019-04-21] MEDS ORDERED: ABILIFY10 MG PO (21:58)
[2019-04-21] MEDS ORDERED: HUMALOG 30100 UNITS/ (22:00)
[2019-04-21] MEDS ORDERED: ROCEPHIN 1 GM/D51 G1 (22:00)
--- NOTE | 2019-04-21 22:24 | NUR ---
DR. GARSIA NOTIFIED AND REVIEWED PT'S BEHAVIOR AND ASSESSMENT RESULTS. PT IS A LOW RISK PER DR. GARSIA. DR. GARSIA STATED TO GIVE RESOURCES TO PT AT TIME OF DISCHARGE. NO FURTHER ORDERS AT THIS TIME. RESOURCES REVIEWED WITH PT AND HE VERBALIZED UNDERSTANDING.
[2019-04-21 22:34] LABS: BASOPHILS 0.6 % (0-2); EOSINOPHILS 2.1 % (0-7); HEMATOCRIT 34.5 % (42.0-54.0); HEMOGLOBIN 12.2 g/dL (13.5-17.5); IMMATURE GRANULOCYTES 0.3 % (0-5); LYMPHOCYTES 25.8 % (15-50); MCH 31.5 pg (26.0-34.0); MCHC 35.4 g/dL (31.0-37.0); MCV 89.1 fL (80.0-100.0); MEAN PLATELET VOLUME 8.8 fL (7.4-10.4); MONOCYTES 11.8 % (2-11); NEUTROPHILS 59.4 % (40-80); PLATELET COUNT 135 10x3/uL (130-400); RBC 3.87 10x6/uL (4.20-6.10); RDW 13.2 % (11.5-14.5); WBC 6.2 10x3/uL (4.8-10.8)
[2019-04-21 22:44] LABS: ALBUMIN 3.4 g/dL (3.4-5.0); ALKALINE PHOSPHATASE 119 U/L (46-116); ALT (SGPT) 51 U/L (10-68); BILIRUBIN - TOTAL 0.85 mg/dL (0.2-1.3); CALC OSMOLALITY 280 mosm/kg (275-300); CALCIUM 8.7 mg/dL (8.5-10.1); CARBON DIOXIDE 22.5 mmol/L (21.0-32.0); CHLORIDE - SERUM 102 mmol/L (98-107); CREATININE - SERUM 0.8 mg/dL (0.6-1.3); POTASSIUM - SERUM 3.9 mmol/L (3.5-5.1); PROTEIN - SERUM 6.9 g/dL (6.4-8.2); SODIUM 134 mmol/L (136-145); UREA NITROGEN 16 mg/dL (7-18); eGFR NON AFRICAN AMERICAN > 90 mL/min (90-120)
[2019-04-21 22:46] LABS: GLUCOSE 318 mg/dL (74-106)
[2019-04-22] MEDS ORDERED: CLEOCIN HCL300 MG PO (00:37)
[2019-04-22 01:34] VITALS: BP 164/90
== END 2019-04-22 01:34 | disposition home or self-care (01) ==
LOC: D.ER 21:47
PROVIDERS: Family Medicine
DX: L03.115 Cellulitis of right lower limb (principal); I10 Essential (primary) hypertension; R73.9 Hyperglycemia, unspecified; Z91.14 Patient's other noncompliance with medication regimen; F17.210 Nicotine dependence, cigarettes, uncomplicated